=== PATIENT | female | born 2000 | race Caucasian/White ===

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

== ENCOUNTER → 2018-02-01 13:06 | Outpatient (CLI) | payer MEDICAID, SELFPAY ==
--- NOTE | 2018-02-01 13:10 | US_ITS ---
US transvaginal Ordering Physician: Fabio Coats MD Patient Age: 17 years: Female HISTORY: ITS.REASON: pelvic pain . Difficulty voiding bladder complaints since October 4 months. Previous TECHNIQUE: Transvaginal pelvic ultrasound COMPARISON :CT abdomen pelvis from 2015 FINDINGS Uterus. Retroverted retroflexed uterus.. Uterus appears normal to upper normal size, measuring 7.5 cm length x 4.2 cm AP X 5.6 cm transverse. No uterine fibroid or mass evident. Moderate endometrial stripe measures up to 1 CM AP. With some very scant fluid along the central endometrial cavity. Patient likely premenstrual. Any bleeding currently?.. Last LMP 01/10/2018 There is a small amount of fluid the cul-de-sac. Small pocket of fluid measured 1.7 X 1 cm. This could merely be physiologic very numerous small up to 6 mm follicles are seen throughout both ovaries with generous size ovaries, upper normal in volume bilaterally could.. Possible early polycystic change Right ovary: 3.65cm x 1.7 cm x 2.1 similar. Left ovary: measuring 4.2 cm x 1.4 cm x 1.4 cm. It bladder pain should persist or progress, may consider follow-up transabdominal scanning with bladder filled or possibly follow-up CT IMPRESSION: ====== 1. Retroflexed retroverted uterus no uterine mass. 2. Moderate endometrial thickness up to 1 cm with scant fluid centrally endometrial cavity. . May reflect premenstrual status in this young patient. Correlation required 3. The ovaries are generous in volume bilaterally. Diffuse numerous small follicles throughout. 4.. Scant fluid at cul-de-sac.
== END ==
PROVIDERS: Family Provider Obstetrics & Gynecology; PCP Family Medicine; Visit Provider Obstetrics & Gynecology
DX: R10.2 Pelvic and perineal pain (principal)
CPT/HCPCS: 76830

== ENCOUNTER 2020-11-14 11:31 | Emergency (ER) | payer OTHER, SELFPAY ==
[2020-11-14 11:55] VITALS: BP 127/66; PULSE 89; RESP 19; TEMP 37.1; O2SAT 98; BMI 37.1
[2020-11-14 12:09] VITALS: BP 127/66; PULSE 89; RESP 19; TEMP 37.1; O2SAT 98
--- NOTE | 2020-11-14 12:09 | HMH.EDUTC ---
[facility] Disposition Clinical Impression: Strep throat, Encounter for laboratory testing for COVID-19 virus Disposition: Home, Self-Care Condition on Discharge: Good Instructions: DI for COVID-19 (Suspected or Confirmed ), Coronavirus Disease 2019, Preventing the Spread of Coronavirus Discharge Instructions, DI for Strep Throat, Strep Throat, Strep Throat (Alternative Therapy) Additional Instructions: *Monitor Temp, Over the counter Motrin or Tylenol as directed/as needed Tylenol every 4 hours and Motrin every 6 hours (as long as your family doctor has told you that you can take it) for fever or pain. and straight to ER if unable to lower temp less than 101.0 after medication given *Warm salt water gargles may help to soothe the throat *Throat Lozenges *Warm fluids like tea with honey may help to soothe the throat *Sleep elevated *Humidifier/Vaporizer *If you did not take Penicillin shot or was unable to, start taking antibiotic immediately and make sure that you take it for the FULL length of time although you should start to feel better in 24-48 hours *change toothbrush and toothpaste 24-48 hours after starting to take antibiotics so you do not reinfect yourself Monitor Temp. Tylenol and/or Ibuprofen as needed. ER if fever is no less than 101 despite alternating Tylenol and Ibuprofen * Encourage fluids, water, Gatorade, powerade, pedialyte if infant/toddler/or child *Cold fluids, popsicles and ice cream may feel good on his throat Follow up IMMEDIATELY for new or worsening symptoms or no Noticeable improvement over the next 48-72 hours. 911 for difficulty breathing or swallowing You were tested for today for COVID19 your test result should be back in the next 24-48 hours, you may call to the [facility] to see if your test results are back in the next 48 hours [phone] [facility] hours are 9am-9pm You was given a handout with instructions for Self Quarantine and Self isolation for while you wait on test results and what to do if they are positive If you are positive the Health Dept will be contacting you also Prescriptions: Amoxicillin [Amoxicillin 500mg Cap] 500 mg PO BID 10 Days #20 cap Transmission Status: Pending to [facility] [employer] #[id number] Referrals: Yelena Coleman APRN [Primary Care Provider] - Forms: Work/School Release Time of Disposition: 12:13 Medical Decision Making - Bc Inquiry Pt receiving controlled substance: No Bc was queried for this patient: No Vital Signs: 11/14/20 11:55 Temperature 98.7 F Temperature Source Oral Pulse Rate [Right Brachial] 89 Respiratory Rate 19 Blood Pressure [Right Arm] 127/66 Blood Pressure Mean [Right Arm] 86 Blood Pressure Source [Right Arm] Automatic Cuff Blood Pressure Position [Right Arm] Sitting 02 Sat by Pulse Oximetry 98 Oxygen Delivery Method Room Air - Lab Data Lab results reviewed: Yes: I reviewed the patient's lab results. Orders (Tests/Meds): ORDERS Category Date Time Status Covid-19 Nasal PCR Sendout P&C Stat Lab 11/14/20 11:35 Ordered [facility] HPI - General Stated complaint: covid test Time Seen by Provider: 11/14/20 11:50 Mode of Arrival: Ambulatory Source of Information: Patient Limitations: No Limitations Description of Symptoms (Recalled from Triage Doc. by RN): PATIENT C/O SEVERE HEADACHE, SORE THROAT, AND COLD SWEATS SINCE WEDNESDAY HEENT Symptoms (Recalled from RN notes): Yes Resp Symptoms (Recalled from RN notes): No Skin Symptoms (Recalled from RN notes): No MS Symptoms (Recalled from RN notes): No Functional Status (Recalled from RN notes): WNL - History of Present Illness Provider Complaint: Patient states that she has been having sore throat, headache and feverish like feeling and cold sweats since Wed State that today she was feeling worse so she came in to get tested for COVID - Related Data Home Medications Medication Instructions Recorded Confirmed escitalopram oxalate 10 mg tablet 10 mg PO DAILY tab 07/15
[2020-11-14 13:56] LABS: UTC Strep Screen (Rapid) Positive (Negative)
[2020-11-15 07:26] LABS: Covid-19 Nasal PCR Sendout P&C NEGATIVE
== END 2020-11-14 12:18 | disposition home or self-care (01) ==
PROVIDERS: Emergency Provider Nurse Practitioner; PCP Nurse Practitioner
DX: J02.0 Streptococcal pharyngitis (principal)
CPT/HCPCS: 87880; 99202; G0463; U0004

== ENCOUNTER 2021-02-05 22:22 | Emergency (ER) | payer OTHER, SELFPAY ==
[2021-02-05 22:23] VITALS: BP 129/71; PULSE 68; RESP 16; TEMP 37.1; O2SAT 97; BMI 40.3
--- NOTE | 2021-02-05 22:41 | XR_ITS ---
PROCEDURE: XR FOOT RT MIN 3V CLINICAL INDICATION: accident Pain following injury COMPARISON: No exams were available for comparison FINDINGS: There is a lucency through the distal and lateral aspect of the proximal phalanx of the 5th toe consistent with a nondisplaced avulsion fracture. This however may be old. Please correlate with patient's area of pain and tenderness. Otherwise negative. IMPRESSION: Avulsion fracture at the distal aspect of the proximal phalanx of the 5th toe age indeterminate Dictated by: Celso Cleaning MD 02/06/2021 05:29 Celso Cleaning MD in [place] 02/06/2021 05:29
--- NOTE | 2021-02-05 23:25 | HMH.EDLOEX ---
ED Disposition Clinical Impression: Fracture of toe Qualifiers: Encounter type: initial encounter Toe: lesser toe Fracture type: closed Phalanx: middle Fracture alignment: nondisplaced Laterality: right Qualified Code(s): S92.524A - Nondisplaced fracture of middle phalanx of right lesser toe(s), initial encounter for closed fracture Disposition: Home, Self-Care Condition on Discharge: Good Instructions: DI for Toe Fracture Additional Instructions: ice and advil/tyenol and see podiatry and pcp for follow up Referrals: Yelena Coleman APRN [Primary Care Provider] - Meghann Gongora DPM [Staff Physician] - - Critical Care Critical Care Time: No Attestation: On 02/05/21, the high probability of a clinically significant, sudden or life threatening deterioration of the following system(s) required my full and direct attention, intervention and personal management. The time I documented below is in addition to time spent performing reported procedures but includes the following listed in this critical care notation. Medical Decision Making - Medical Records Medical records reviewed: Yes: I reviewed the patient's medical records. - Bc Inquiry Pt receiving controlled substance: No Vital Signs: 02/05/21 22:23 Temperature 98.7 F Temperature Source Oral Pulse Rate [Right] 68 Respiratory Rate 16 Blood Pressure [Right Arm] 129/71 Blood Pressure Mean [Right Arm] 90 02 Sat by Pulse Oximetry 97 - Lab Data Lab results reviewed: Yes: I reviewed the patient's lab results. Orders (Tests/Meds): ED MEDICATIONS Generic Name Dose Route Start Last Admin Trade Name Freq PRN Reason Stop Dose Admin Acetaminophen/Codeine Phosphate 1 jose l 02/05/21 23:41 Acetaminophen 300mg W/Codeine 30mg Take Home Pack (6) PO 02/05/21 23:42 ONCE ONE ORDERS Category Date Time Status Foot XR right minimum 3 views [XR foot RT min 3V] Stat Exams 02/05/21 22:41 Taken - Radiology Data #1 Image(s): Foot/Toes Image Reviewed: Yes I reviewed the patient's radiology image Preliminary Findings: Abnormal (fifth toe fx ) Lower Extremity Injury HPI - General Chief Complaint: Extremity Injury, Lower Stated Complaint: AO 0407 @2100 injured R Little toe Time Seen by Provider: 02/05/21 23:00 Mode of Arrival: Ambulatory Source of Information: Patient, Medical Record Limitations: No Limitations Description of Symptoms (Recalled from ER Triage Doc. by RN): pt states walking to bathroom and rt foot strike couch. pt c/o rt 5 toe pain - History of Present Illness HPI Narrative: acute injury rt fifth toe tonight complaint: foot injury Onset (ago): hour(s) Injury: Right: foot Type of Injury: blunt Place: home Severity: moderate Context: direct blow Associated symptoms: swelling, able to partially bear weight Other symptoms: none - Related Data Home Medications Medication Instructions Recorded Confirmed escitalopram oxalate 10 mg tablet 10 mg PO DAILY tab 07/15/20 11/14/20 Previous Rx's Medication Instructions Recorded medroxyprogesterone 150 mg/mL 150 mg IM [id number] #1 ml 01/22/21 intramuscular suspension Allergies Allergy/AdvReac Type Severity Reaction Status Date / Time No Known Allergies Allergy Verified 01/22/21 12:00 [facility] History - Hepatitis A Screen Drug use history?: No High risk sexual behaviors?: No History of sexually transmitted infection?: No Currently employed?: No Childcare worker?: No Do you have indoor plumbing?: Yes Do you have electricity?: Yes Attestation statement:: This patient has been screened for Hepatitis A risk factors. I have reviewed the patient's past medical history: Yes Medical History: Reports:: Seizures Denies:: Cancer, Diabetes Mellitus Type 1, Diabetes Mellitus Type 2, MRSA Other Medical History: Reports: Other Comment: BACK PAINS. DEPO-PROVERA Laterality Cases: Bilateral: Tonsillectomy Other Surgeries: Yes: , Other Amputation:
[2021-02-05 23:55] VITALS: BP 126/70; PULSE 72; RESP 16; TEMP 37.1; O2SAT 97
== END 2021-02-05 23:57 | disposition home or self-care (01) ==
PROVIDERS: Emergency Provider Emergency Medicine; PCP Nurse Practitioner
DX: S92.514A Nondisplaced fracture of proximal phalanx of right lesser toe(s), initial encounter for closed fracture (principal); W22.03XA Walked into furniture, initial encounter; Y92.019 Unspecified place in single-family (private) house as the place of occurrence of the external cause
CPT/HCPCS: 29515; 73630; 99283

== ENCOUNTER 2021-09-22 06:30 | Emergency (ER) | payer OTHER, SELFPAY ==
[2021-09-22 06:32] VITALS: BP 121/72; PULSE 76; RESP 18; TEMP 36.8; O2SAT 95; BMI 40.3
--- NOTE | 2021-09-22 06:44 | ECG_ITS ---
APPROVED REPORT Exam: Resting ECG HR:72 bpm ECG Measurements Heart Rate 72 AXES AR 158 P 50 QRSd 104 QRS 49 QT 404 T 26 QTc 442 Conclusion Normal sinus rhythm Normal ECG Electronically signed by : Luis Saeed MD 09/23/2021 12:18:20
--- NOTE | 2021-09-22 06:52 | XR_ITS ---
PROCEDURE: XR CHEST 2V CLINICAL HISTORY: SOA COMPARISON: CT CTAC CTA-CHEST from 11/03/2014 CR CXR1 CHEST-PORTABLE from 11/03/2014 CR CXR CHEST(2 VIEWS-NOT PORTABLE) from 06/29/2016 CR CXR2V XR chest 2V from 07/21/2018 FINDINGS: The cardiomediastinal silhouette and pulmonary vascularity are within normal limits. The lungs are clear without infiltrates, suspicious nodules, or pleural effusions. No acute bony abnormalities. IMPRESSION: No acute findings. Dictated by: Celso Cleaning MD 09/22/2021 09:22 Celso Cleaning MD in [place] 09/22/2021 09:22
[2021-09-22 06:59] LABS: Influenza A, PCR Not Detected (NotDetected); Influenza B, PCR Not Detected (NotDetected)
[2021-09-22 07:06] LABS: Basophils # 0.1 K/mm3 (0-0.2); Basophils % 0.8 % (0.1-2.0); Eosinophils # 0.5 K/mm3 (0.0-0.4); Eosinophils % 3.2 % (0.1-12.0); Hematocrit 40.2 % (37.0-47.0); Hemoglobin 13.4 g/dL (12.2-16.2); Lymphocytes # 4.9 K/mm3 (0.7-4.5); Lymphocytes % 29.6 % (10-50); Mean Corpuscular HGB Conc 33.3 g/dL (31.8-35.4); Mean Corpuscular Hemoglobin 29.4 pg (27.0-31.2); Mean Corpuscular Volume 88.3 fl (81-99); Monocytes # 0.8 K/mm3 (0.1-1.0); Monocytes % 4.6 % (1.7-9.3); Neutrophils # 10.2 K/mm3 (1.8-7.8); Neutrophils % 61.8 % (37.0-80.0); Platelet Count 336 K/mm3 (142-424); Red Blood Count 4.55 M/mm3 (4.20-5.40); White Blood Count 16.5 K/mm3 (4.8-10.8)
[2021-09-22 07:11] LABS: Alanine Aminotransferase 31 U/L (12-78); Albumin Level 4.4 g/dl (3.5-5.0); Alkaline Phosphatase 69 U/L (38-126); Aspartate Amino Transferase 33 U/L (14-36); Bilirubin,Direct 0.1 mg/dl (0.0-0.4); Bilirubin,Indirect 0.3 mg/dL (0.0-0.9); Bilirubin,Total 0.4 mg/dl (0.2-1.3); Bilirubin,Unconjugated 0.3 mg/dL (0.0-1.1); Blood Urea Nitrogen 12 mg/dl (7-17); Calcium 9.1 mg/dl (8.4-10.2); Carbon Dioxide 29 mmol/L (22.0-30.0); Chloride 103 mmol/L (98-107); Creatinine Clearance Estimated 226 mL/min (50-200); Estimated Glomerular Filt Rate 105 ml/min (>60); GFR (African American) 127 ML/MIN (>60); Glucose 110 mg/dl (74-100); Sodium 140 mmol/L (136-145); Total Protein,Serum 7.7 g/dl (6.3-8.2)
--- NOTE | 2021-09-22 07:11 | HMH.EDSOB ---
ED Disposition Clinical Impression: Bronchitis due to 2019 novel coronavirus, Mediastinal lymphadenopathy Disposition: Home, Self-Care Condition on Discharge: Good Instructions: DI for COVID-19 (Suspected or Confirmed ) Additional Instructions: use meds and call pcp for follow up about illness and ct Prescriptions: levoFLOXacin [Levaquin 500mg tab] 500 mg PO DAILY #7 tab Transmission Status: Pending to [facility] # predniSONE [Prednisone 20mg Tab] 20 mg PO BID #10 tab Transmission Status: Pending to [facility] # Referrals: Yelena Coleman APRN [Primary Care Provider] - - Critical Care Critical Care Time: No Attestation: On 09/22/21, the high probability of a clinically significant, sudden or life threatening deterioration of the following system(s) required my full and direct attention, intervention and personal management. The time I documented below is in addition to time spent performing reported procedures but includes the following listed in this critical care notation. Medical Decision Making - Medical Records Medical records reviewed: Yes: I reviewed the patient's medical records. - Bc Inquiry Pt receiving controlled substance: No Vital Signs: 09/22/21 06:32 09/22/21 08:01 Temperature 98.2 F Temperature Source Oral Pulse Rate 60 Pulse Rate [Right Radial] 76 Respiratory Rate 18 18 Blood Pressure 99/67 L Blood Pressure [Right Arm] 121/72 Blood Pressure Mean 77 Blood Pressure Mean [Right Arm] 88 Blood Pressure Source [Right Arm] Automatic Cuff Blood Pressure Position [Right Arm] Sitting 02 Sat by Pulse Oximetry 95 97 Oxygen Delivery Method Room Air - Lab Data Lab results reviewed: Yes: I reviewed the patient's lab results. Lab Results 09/22/21 06:34: WBC 16.5 H, RBC 4.55, Hgb 13.4, Hct 40.2, MCV 88.3, MCH 29.4, MCHC 33.3, RDW 13.0, Plt Count 336, MPV 9.0, Neut % (Auto) 61.8, Lymph % (Auto) 29.6, [place] % (Auto) 4.6, Eos % (Auto) 3.2, Baso % (Auto) 0.8, Neut # (Auto) 10.2 H, Lymph # (Auto) 4.9 H, [place] # (Auto) 0.8, Eos # (Auto) 0.5 H, Baso # (Auto) 0.1, Total Counted 100, Neutrophils % (Manual) 72, Lymphocytes % (Manual) 24, Monocytes % (Manual) 3, Eosinophils % (Manual) 1, Platelet Estimate Normal, RBC Morphology Normal 09/22/21 06:34: Sodium 140, Potassium 4.0, Chloride 103, Carbon Dioxide 29, Anion Gap 12.0, BUN 12, Creatinine 0.70, Estimated Creat Clear 226, Estimated GFR 105, Est GFR ( Amer) 127, Glucose 110 H, Calcium 9.1, Total Bilirubin 0.4, Direct Bilirubin 0.1, Conjugated Bilirubin 0.0, Indirect Bilirubin 0.3, Unconjugated Bilirubin 0.3, AST 33, ALT 31, Alkaline Phosphatase 69, Troponin I < 0.01, Total Protein 7.7, Albumin 4.4 09/22/21 06:34: SARS-CoV-2 (PCR) Detected A, Influenza A Untype (PCR) Not detected, Influenza Type B (PCR) Not detected 09/22/21 06:34: ESR 58 H 09/22/21 06:34: C-Reactive Protein 33.6 H, Procalcitonin 0.061 09/22/21 06:40: Serum HCG, Qual Negative Result diagrams: 09/22/21 06:34 09/22/21 06:34 Orders (Tests/Meds): ED MEDICATIONS Discontinued Medications Generic Name Dose Route Start Last Admin Trade Name Freq PRN Reason Stop Dose Admin Dexamethasone Sodium Phosphate 10 mg 09/22/21 07:12 09/22/21 07:20 Dexamethasone 4mg/Ml 5ml Mdv IV 09/22/21 07:13 Not Given ONCE ONE Sodium Chloride 1,000 mls @ 999 mls/hr 09/22/21 07:15 09/22/21 07:11 Sod Chlor 0.9% 1000ml Bag IV 09/22/21 08:15 999 mls/hr .Q1H1M YENNY Administration Iopamidol 70 ml 09/22/21 08:43 09/22/21 08:44 Iopamidol-370 (76%);100ml Bottle IV 09/22/21 08:44 70 ml ONCE ONE Administration Ketorolac Tromethamine 30 mg 09/22/21 07:12 09/22/21 07:15 Ketorolac 30mg/Ml Vial IV 09/22/21 07:13 30 mg ONCE ONE Administration Methylprednisolone Sodium Succinate 125 mg 09/22/21 07:16 09/22/21 07:20 Methylprednisolone Sod Succ 125mg Vial IV 09/22/21 07:17 125 mg ONCE ONE Administration Ondansetr
[2021-09-22 07:12] LABS: HCG Qualitative, Serum Negative (Negative)
[2021-09-22 07:15] LABS: MANUAL DIFFERENTIAL MANUAL DIFFERENTIAL (MANUAL DIFF)
[2021-09-22 07:16] LABS: C-Reactive Protein 33.6 mg/L (0-4)
[2021-09-22 07:26] LABS: Troponin I < 0.01 ng/ml (0.00-0.034)
[2021-09-22 07:28] LABS: Coronavirus 19, PCR Detected (NotDetected)
[2021-09-22 07:30] LABS: Procalcitonin 0.061 ng/mL (0.0-2.0)
[2021-09-22 07:39] LABS: Eosinophils % 1 % (0-3); Lymphocytes % 24 % (10-50); Monocytes % 3 % (2-9); Neutrophils % 72 % (42-76); Platelet Estimate Normal; RBC Morphology Normal; Total Cells Counted 100
--- NOTE | 2021-09-22 07:40 | CT_ITS ---
PROCEDURE: CT ANGIO CHEST PE PROTOCOL CLINCIAL INDICATION: sob COMPARISON: CT CTAC CTA-CHEST from 11/03/2014 TECHNIQUE: IV Contrast: 70ML Isovue 370 Axial images obtained with sagittal and coronal reformats. All CT scans at the facility use one or more dose reduction, viz: automated exposure control, ma/kV adjustment per patient size (including targeted exams where dose is matched to indication, i.e. head), or iterative reconstruction technique. FINDINGS: HEART AND MEDIASTINAL STRUCTURES: Enlarged thyroid gland. There is fairly extensive mediastinal adenopathy which has developed since the previous study in the right anterior lateral pre tear achy ule region and in the subcarinal area. The anterior pretracheal and precarinal antoine area measures 4 x 3.7 x 2.9 cm. Coarse calcification is present within these antoine areas. No evidence of pulmonary embolus, aortic aneurysm, or aortic dissection. LUNGS AND PLEURAL SPACES: Calcified granulomas present in the left lower lobe. There is mild diffuse hazy appearance involving both lower lobes posteriorly possibly due to dependent changes. No lobar consolidation or collapse. No effusions. BONY STRUCTURES: No acute bony abnormalities apparent. UPPER ABDOMEN: There is hepatosplenomegaly. The liver measures up to 27 cm transverse and the spleen measures 17.5 cm in AP dimension. ADDITIONAL FINDINGS: No other significant abnormalities. IMPRESSION: 1. No evidence of pulmonary embolus. 2. Interval development of mediastinal adenopathy. The nodes have coarse calcification centrally. The calcifications were present previously. Differential diagnosis would include reactive adenopathy, sarcoidosis, or lymphoma. 3. Faint diffuse ground-glass attenuation in both lower lobes posteriorly. This could be related to dependent changes. Cannot exclude the possibility of underlying infection or edema. 4. Hepatosplenomegaly Dictated by: Celso Cleaning MD 09/22/2021 09:17 Celso Cleaning MD in [place] 09/22/2021 09:17
--- NOTE | 2021-09-22 08:00 | PC.NURSE ---
RAD NOTIFIED OF CTA ORDER
[2021-09-22 08:01] VITALS: BP 99/67; PULSE 60; RESP 18; O2SAT 97
[2021-09-22 08:05] LABS: Erythrocyte Sedimentation Rate 58 mm/hr (0-20)
--- NOTE | 2021-09-22 09:36 | PC.NURSE ---
DR. BLEVINS NOTIFIED OF CTA REPORT AVAILABLE
--- NOTE | 2021-09-22 09:51 | PC.NURSE ---
DR. BLEVINS CALLED TO CHECK ON PT, ORDERS RECEIVED AT THIS TIME. WILL DISCHARGE PT
--- NOTE | 2021-09-22 09:54 | PC.NURSE ---
RESPIRATORY AT BEDSIDE FOR INHALER INSTRUCTION
[2021-09-22 10:27] LABS: Troponin I < 0.01 ng/ml (0.00-0.034)
[2021-09-22 10:37] VITALS: BP 106/56; PULSE 82; RESP 17; O2SAT 95
[2021-09-22 10:50] VITALS: BP 106/56; PULSE 76; RESP 18; TEMP 36.8; O2SAT 95
== END 2021-09-22 10:50 | disposition home or self-care (01) ==
PROVIDERS: Emergency Provider Emergency Medicine; PCP Nurse Practitioner
DX: U07.1 COVID-19 (principal); J20.9 Acute bronchitis, unspecified; R59.0 Localized enlarged lymph nodes
CPT/HCPCS: 71046; 71275; 80048; 80076; 84145; 84484; 84703; 85007; 85025; 85651; 86140; 93005; 96365; 96375; 99283; C9803; J2405; Q9967; U0003; U0005

== ENCOUNTER → 2021-11-05 12:31 | Outpatient (CLI) | payer OTHER, SELFPAY | PROVIDERS: Visit Provider Nurse Practitioner | DX: U07.1 COVID-19 (principal) | CPT/HCPCS: C9803; U0003; U0005 ==

== ENCOUNTER → 2022-05-26 05:32 | Outpatient (CLI) | payer OTHER, SELFPAY ==
[2022-05-26 06:25] LABS: Coronavirus 19, PCR Not Detected (NotDetected); Influenza A, PCR Not Detected (NotDetected); Influenza B, PCR Not Detected (NotDetected)
== END ==
PROVIDERS: PCP Nurse Practitioner Family; Visit Provider Emergency Medicine
DX: Z20.822 Contact with and (suspected) exposure to COVID-19 (principal)
CPT/HCPCS: C9803; U0003; U0005

== ENCOUNTER 2022-09-01 09:39 | Emergency (ER) | payer OTHER, SELFPAY ==
--- NOTE | 2022-09-01 09:35 | ECG_ITS ---
APPROVED REPORT Exam: Resting ECG HR:110 bpm ECG Measurements Heart Rate 110 AXES [place] 163 P 47 QRSd 100 QRS 42 QT 334 T 15 QTc 399 Conclusion SINUS TACHYCARDIA ABNORMAL RHYTHM ECG UNCONFIRMED REPORT Electronically signed by : Luis Saeed MD 09/01/2022 21:09:43
[2022-09-01 09:39] VITALS: BP 127/87; PULSE 105; RESP 20; TEMP 36.8; O2SAT 97; BMI 41.9
--- NOTE | 2022-09-01 10:16 | PC.NURSE ---
PT MEDICATED PER EMAR, AT BEDSIDE. NO NEEDS VOICED
--- NOTE | 2022-09-01 10:22 | PC.NURSE ---
pt given warm blankets
--- NOTE | 2022-09-01 10:27 | PC.NURSE ---
ROUNDED ON PT, REPORTS FEELING BETTER
[2022-09-01 10:30] VITALS: BP 117/66; RESP 21
[2022-09-01 11:01] VITALS: BP 106/71; RESP 22
--- NOTE | 2022-09-01 11:05 | PC.NURSE ---
rounfded on pt and asked if they could have some ice chips. was able to get the pt some.
[2022-09-01 11:30] VITALS: BP 115/73; RESP 21
[2022-09-01 12:20] LABS: Basophils # 0.2 K/mm3 (0-0.2); Basophils % 0.8 % (0.1-2.0); Eosinophils # 0.4 K/mm3 (0.0-0.4); Hematocrit 43.6 % (37.0-47.0); Hemoglobin 14.6 g/dL (12.2-16.2); Lymphocytes # 6.2 K/mm3 (0.7-4.5); Lymphocytes % 30.7 % (10-50); Mean Corpuscular HGB Conc 33.5 g/dL (31.8-35.4); Mean Corpuscular Hemoglobin 30.6 pg (27.0-31.2); Mean Corpuscular Volume 91.3 fl (81-99); Mean Platelet Volume 9.7 fl (7.4-10.4); Monocytes # 1.1 K/mm3 (0.1-1.0); Monocytes % 5.3 % (1.7-9.3); Neutrophils # 12.4 K/mm3 (1.8-7.8); Neutrophils % 61.2 % (37.0-80.0); Platelet Count 403 K/mm3 (142-424); Red Blood Count 4.77 M/mm3 (4.20-5.40); Red Cell Distribution Width 12.8 % (11.5-17.5); White Blood Count 20.3 K/mm3 (4.8-10.8)
--- NOTE | 2022-09-01 12:20 | PC.NURSE ---
ROUNDED ON PT, RESTING WITH EYES CLOSED. NO NEEDS AT THIS TIME
--- NOTE | 2022-09-01 12:34 | PC.NURSE ---
DR. MULLEN AT BEDSIDE FOR EVALUATION
--- NOTE | 2022-09-01 12:39 | HMH.EDGENADL ---
Discharge Plan Disposition Patient Disposition: Home, Self-Care Condition: Good Prescriptions Prescriptions: New prednisone 20 mg tablet 20 mg PO BID Qty: 10 0RF famotidine [Pepcid] 20 mg tablet 20 mg PO BID Qty: 6 0RF diphenhydramine HCl [Benadryl] 25 mg capsule 25 mg PO Q6H Qty: 12 0RF No Action escitalopram oxalate 10 mg tablet 10 mg PO DAILY Label Comments: TK 1 T PO QD Referrals Follow up/Referrals: Provider,Referral, [Primary Care Provider] - See instructions Activity Restrictions/Add. Instructions Additional Instructions/Restrictions: Benadryl, prednisone, and Pepcid as prescribed for 3 days. Do not take any penicillin medications in the future. Additional instructions for ALLERGIC REACTION: See your physician for further care. Return immediately if severe intolerable rash or itching, trouble breathing, or faintness. Clinical Impressions Clinical Impression: Acute allergic reaction, Allergic reaction to penicillin, Leukocytosis Stand Alone Forms Stand Alone Forms: Work/School Release Discharge ED Provider: Josias Henderson General Adult HPI General Chief complaint: Allergic Reaction Stated complaint: CHEST PAIN Time Seen by Provider: 09/01/22 12:33 Mode of Arrival: Ambulatory Limitations: No Limitations Description of Symptoms (Recalled from ER Triage Doc. by RN): PT REPORTS COUGH, VOMITING AND ITCHGING THAT STARTED ABOUT 0900 AFTER TAKING AMOXIL AT 0800. HAS NEVER TAKEN AMOXIL BEFORE, RX GIVEN FOR URI History of Present Illness HPI narrative: Patient states that she took amoxicillin this morning for an upper respiratory infection at about 8 AM. At about 9 she began having itching and hives, trouble breathing, lower sternal chest pain, coughing and vomiting. To her knowledge she has never had penicillin before. Initially she did not complain of any lip, mouth, or throat swelling. She was given Benadryl, Solu-Medrol, and Pepcid on arrival. Her rash and itching and other symptoms all seem to be better, but now she says that she has a sensation like there is something in her throat, a swelling or constriction when she swallows. She says she was prescribed amoxicillin 8 days ago for the upper respiratory infection but had not taken it until today. She saw Dr. Mejia in the office. She says she was not given any other medications for her URI. She took it today because she was having some head congestion and thought it would help. She said her cough had improved until today. She began coughing again after she developed the hives. The cough is now again better. She had had a fever, which has been gone for days. She was tested for COVID last Wednesday and it was negative. Related Data Home Medications Medication Instructions Recorded Confirmed escitalopram oxalate 10 mg tablet 10 mg PO DAILY Depression 07/15/20 09/01/22 Previous Rx's Medication Instructions Recorded diphenhydramine HCl 25 mg capsule 25 mg PO Q6H #12 caps 09/01/22 (Benadryl) famotidine 20 mg tablet (Pepcid) 20 mg PO BID #6 tabs 09/01/22 prednisone 20 mg tablet 20 mg PO BID #10 tabs 09/01/22 Allergies Allergy/AdvReac Type Severity Reaction Status Date / Time amoxicillin Allergy Hives Verified 09/01/22 15:18 PFSH PFSH Surgical History (Updated 09/01/22 @ 09:48 by Melissa Carranza RN) History of tonsillectomy Hx of cholecystectomy Previous section Family History (Updated 09/01/22 @ 09:48 by Melissa Carranza RN) Other No significant family history Social History (Updated 09/01/22 @ 09:47 by Melissa Carranza RN) Smoking Status: Current every day smoker tobacco type: cigarettes alcohol intake: never substance use type: denies use current occupational status: unemployed Travel in the last 8 weeks: None household members: family ROS Obtained: Yes Systems reviewed as appropriate & no additional complaints except as documented Constitutional Cons
[2022-09-01 12:40] LABS: MANUAL DIFFERENTIAL MANUAL DIFFERENTIAL (MANUAL DIFF)
[2022-09-01 12:48] LABS: Eosinophils % 1 % (0-3); Lymphocytes % 31 % (10-50); Monocytes % 9 % (2-9); Neutrophils % 59 % (42-76); Total Cells Counted 100
--- NOTE | 2022-09-01 12:48 | XR_ITS ---
FINAL REPORT CLINICAL HISTORY: Unexplained cough COMPARISON: 09/22/2021 FINDINGS: Two views of the chest were obtained. The heart size and pulmonary vascularity are within normal limits. The mediastinum is normal. No acute pulmonary abnormality is identified. There is no pneumothorax. The bony thorax is intact. IMPRESSION: No active cardiopulmonary disease. Reviewed, Interpreted and Dictated by Kristopher Castillo III, MD Transcribed by Natalia Lim Authenticated and [facility]
[2022-09-01 12:49] LABS: Platelet Estimate Slight Increase; RBC Morphology Normal
[2022-09-01 12:49] LABS: Alanine Aminotransferase 38 U/L (12-78); Albumin/Globulin Ratio 1.3 (1.1-1.8); Alkaline Phosphatase 76 U/L (38-126); Anion Gap 13.4 mEq/L (5-15); Aspartate Amino Transferase 36 U/L (14-36); Bilirubin,Total 0.5 mg/dl (0.2-1.3); Blood Urea Nitrogen 10 mg/dl (7-17); Calcium 8.7 mg/dl (8.4-10.2); Carbon Dioxide 25 mmol/L (22.0-30.0); Chloride 105 mmol/L (98-107); Creatinine Clearance Estimated 137 mL/min (50-200); Estimated Glomerular Filt Rate 124 ml/min (>60); GFR (African American) 150 ML/MIN (>60); Globulin 3.2 g/dL (1.3-3.2); Glucose 144 mg/dl (74-100); Potassium 4.4 mmoL/L (3.5-5.1); Sodium 139 mmol/L (136-145); Total Protein,Serum 7.2 g/dl (6.3-8.2)
[2022-09-01 13:10] LABS: HCG Qualitative, Serum Negative (Negative)
--- NOTE | 2022-09-01 13:16 | PC.NURSE ---
pt went with radiology
--- NOTE | 2022-09-01 13:22 | PC.NURSE ---
PT RETURNED FROM XR
--- NOTE | 2022-09-01 15:00 | PC.NURSE ---
ED MD AT BEDSIDE TO REEVALUATE PT
[2022-09-01 15:16] VITALS: BP 124/79; PULSE 85; RESP 18; TEMP 37; O2SAT 98
== END 2022-09-01 15:19 | disposition home or self-care (01) ==
PROVIDERS: Emergency Provider Emergency Medicine
DX: R05.9 Cough, unspecified; R11.10 Vomiting, unspecified; L29.8 Other pruritus; T36.0X5A Adverse effect of penicillins, initial encounter; D72.829 Elevated white blood cell count, unspecified; Z79.899 Other long term (current) drug therapy; F32.A Depression, unspecified; Z72.0 Tobacco use
CPT/HCPCS: 71046; 80053; 84703; 85007; 85025; 93005; 96365; 96372; 96375; 99284

== ENCOUNTER 2024-01-18 07:25 | Outpatient (CLI) | payer BC, SELFPAY ==
[2024-01-20 22:08] LABS: Neisseria gonorrhoeae, NAA Negative (Negative)
== END 2024-01-18 23:59 ==
LOC: LAB.DROPOF 01-20 07:26
PROVIDERS: PCP Obstetrics & Gynecology; Visit Provider Obstetrics & Gynecology
DX: O26.892 Other specified pregnancy related conditions, second trimester (principal); Z3A.19 19 weeks gestation of pregnancy
CPT/HCPCS: 87491; 87591

== ENCOUNTER 2024-01-19 09:09 | Outpatient (CLI) | payer BC, SELFPAY ==
--- NOTE | 2024-01-19 09:10 | US_ITS ---
PROCEDURE: US OB >= 14 WEEKS FETUS CLINICAL INDICATION: Confirmation of Dates and OB Complete Anatomy Scan COMPARISON: No exams were available for comparison FINDINGS: Transabdominal sonographic images of the pelvis were obtained. From her established due date she is 18 weeks 6 days. Single viable intrauterine gestation. Cephalic position. Placenta: Anteriorplacenta grade 1. There are several placental lakes. There is an average amount of fluid. The cervix appears satisfactory. Closed and measuring 3.3 cm in length. Complete survey performed and was unremarkable on the submitted images as in PACS. No discrete anomalies identified on survey imaging by technologist. Active fetus. Three-vessel cord with satisfactory umbilical cord insertion. 4- chamber heart noted. Situs, aortic arch, LVOT, RVOT, three-vessel view appear normal. Survey of brain & ventricles Unremarkable. Cerebellum, thalamus, choroid plexus, cisterna magna appear normal. Face and neck survey unremarkable. Profile, nasion, lips and nose appeared normal. Diaphragm and chest views unremarkable. Abdomen: Both kidneys noted and unremarkable. Stomach and bladder noted and satisfactory. Spine: Survey of the spine satisfactory with no anomalies identified nor imaged. Cervical, thoracic, lower spine appear normal. Both arms and legs noted. Amniotic Fluid: Adequate. Measurements: Average ultrasound age 19weeks 0 days. Estimated due date by ultrasound age 0806/14/2024. Estimated weight 271g BPD = 18weeks 5days HC = 18weeks 5days AC = 19weeks 1day FL = 19weeks 2days Growth Percentile= 57 Heart Rate = 136bpm Cerebellum = 17weeks 6days Humerus = 19weeks HC/AC is 1.16 FL/BPD is 0.71 FL/AC is 0.22 IMPRESSION: 1. Viable fetus in the cephalic presentation with anterior placenta grade 1. There are several placental lakes of questionable significance. 2. That is within normal limits. 3. Anatomical scan appears normal although difficult due to maternal size. Suggest repeat scan in 4 weeks. 4. biometry is consistent with the dates. Dictated by: Curtis Camilo MD 01/19/2024 13:30 Curtis Camilo MD in [place] 01/19/2024 13:30
== END 2024-01-19 23:59 ==
LOC: RAD 09:10
PROVIDERS: PCP Nurse Practitioner Family; Visit Provider Obstetrics & Gynecology
DX: O26.892 Other specified pregnancy related conditions, second trimester (principal); Z3A.18 18 weeks gestation of pregnancy
CPT/HCPCS: 76805

== ENCOUNTER 2024-02-16 11:10 | Outpatient (CLI) | payer BC, SELFPAY ==
[2024-02-16 11:58] LABS: Basophils # 0.1 K/mm3 (0-0.2); Basophils % 0.4 % (0.1-2.0); Eosinophils # 0.3 K/mm3 (0.0-0.4); Eosinophils % 2.5 % (0.1-12.0); Hematocrit 32.8 % (37.0-47.0); Hemoglobin 11.1 g/dL (12.2-16.2); Lymphocytes # 3.3 K/mm3 (0.7-4.5); Lymphocytes % 24.7 % (10-50); Mean Corpuscular HGB Conc 33.8 g/dL (31.8-35.4); Mean Corpuscular Hemoglobin 31.1 pg (27.0-31.2); Mean Corpuscular Volume 92.2 fl (81-99); Mean Platelet Volume 9.4 fl (7.4-10.4); Monocytes # 0.6 K/mm3 (0.1-1.0); Monocytes % 4.4 % (1.7-9.3); Neutrophils % 68.1 % (37.0-80.0); Platelet Count 229 K/mm3 (142-424); Red Blood Count 3.56 M/mm3 (4.20-5.40); Red Cell Distribution Width 13.1 % (11.5-17.5); White Blood Count 13.3 K/mm3 (4.8-10.8)
[2024-02-17 10:11] LABS: Rubella Antibodies, IgG 1.01 index (Immune >0.99)
[2024-02-17 13:29] LABS: Rapid Plasma Reagin Ab Titer Non Reactive titer (NonRea<1:1)
[2024-02-18 08:45] LABS: HIV Screen 4th Generation wRfx Non Reactive
[2024-02-18 08:46] LABS: Hepatitis B Surface Antigen Negative; Hepatitis C Antibody Non Reactive
== END 2024-02-16 23:59 | disposition home or self-care (01) ==
LOC: LAB 11:10
PROVIDERS: PCP Nurse Practitioner Family; Visit Provider Obstetrics & Gynecology
DX: O26.892 Other specified pregnancy related conditions, second trimester (principal); Z3A.22 22 weeks gestation of pregnancy
CPT/HCPCS: 36415; 85025; 86593; 86703; 86762; 86850; 87340; 87380; G0432

== ENCOUNTER 2024-02-18 13:30 | Outpatient (CLI) | payer BC, SELFPAY ==
--- NOTE | 2024-02-18 13:30 | US_ITS ---
PROCEDURE: US OB /MATERNAL DETAIL CLINICAL INDICATION: anatomy scan follow up COMPARISON: US US OB >= 14 WEEKS FETUS from 01/19/2024 FINDINGS: Transabdominal sonographic images of the pelvis were obtained. From her established due date she is 23 weeks 1 day. Single viable intrauterine gestation. Cephalic position. Placenta: Anteriorplacenta grade 1. There continues to be several placental lakes. There is an average amount of fluid. The cervix appears satisfactory. Closed and measuring 4.3 cm in length. Complete survey performed and was unremarkable on the submitted images as in PACS. No discrete anomalies identified on survey imaging by technologist. Active fetus. Three-vessel cord with satisfactory umbilical cord insertion. 4- chamber heart noted. Situs, aortic arch, LVOT, RVOT, three-vessel view appear normal. Survey of brain & ventricles Unremarkable. Cerebellum, thalamus, choroid plexus, cisterna magna appear normal. Face and neck survey unremarkable. Profile, nasion, lips and nose appeared normal. Diaphragm and chest views unremarkable. Abdomen: Both kidneys noted and unremarkable. Stomach and bladder noted and satisfactory. Spine: Survey of the spine satisfactory with no anomalies identified nor imaged. Cervical, thoracic, lower spine appear normal. Both arms and legs noted. Amniotic Fluid: Adequate. Measurements: Average ultrasound age 23weeks 1day. Estimated due date by ultrasound age 0806/15/2024. Estimated weight 558g BPD = 23weeks 0 days HC = 23weeks 1day AC = 22weeks 3days FL = 23weeks 6days Growth Percentile= 38 Heart Rate = 135bpm Cerebellum = 22weeks 5days Humerus = 23weeks 6days HC/AC is 1.2 FL/BPD is 0.76 FL/AC is 0.24 IMPRESSION: 1. Viable fetus in the cephalic presentation with an anterior placenta grade 1. There continues to be several placental lakes. 2. The fluid is within normal limits. 3. Anatomical scan appears normal. 4. biometry is consistent with the dates. Dictated by: Curtis Camilo MD 02/19/2024 08:28 Curtis Camilo MD in [place] 02/19/2024 08:28
== END 2024-02-18 23:59 | disposition home or self-care (01) ==
LOC: RAD 13:30
PROVIDERS: PCP Nurse Practitioner Family; Visit Provider Obstetrics & Gynecology
DX: O26.892 Other specified pregnancy related conditions, second trimester (principal); Z3A.23 23 weeks gestation of pregnancy
CPT/HCPCS: 76811

== ENCOUNTER 2024-06-03 15:54 | Inpatient (IN) | payer BC, SELFPAY ==
[2024-06-03 15:30] VITALS: BP 139/76; PULSE 85; RESP 18; TEMP 36.9; O2SAT 95; BMI 41.1
[2024-06-03 15:36] VITALS: BMI 41.1
[2024-06-03 15:50] LABS: Fetal Membrane Rupture (Rapid) Positive (Negative)
--- NOTE | 2024-06-03 16:08 | EXP.OB.APHP ---
OB - H&P: HPI Antepartum History of Present Illness Chief complaint: Leakage of fluid, back pain History of present illness: Mrs Magali Diehl is a 23 yo at 37w5d who presents to [facility] L&D for leakage of fluid that started at 1430 today. She admits after leakage she started having back pain. Denies contractions. Baby is active. Upon arrival to L&D Magali was grossly ruptured. Amnisure was positive. complicated by anxiety. She stopped Lexapro when she found out she was . She has had limited care with a total of 4 visits. History of x 2. She is complete with childbearing and desires permanent sterilization. History of Present Criteria for establishing EDC:: LMP confirmed by 2nd trimester US care: limited care Ultrasounds: normal mid trimester US Obstetrical complications: previous Labs Blood type: A (+) positive Rubella: immune RPR/VDRL: nonreactive HBsAG: negative PFSH PFSH Disclaimer: The information contained in this section may have been updated after the patient was seen, as this information can be updated by other users. Medical History (Updated 06/03/24 @ 16:26 by Emi Euceda DO) Request for sterilization Limited care, antepartum Maternal obesity affecting , antepartum Spontaneous rupture of amniotic membranes PTSD (post-traumatic stress disorder) Surgical History (Updated 06/03/24 @ 16:25 by Emi Euceda DO) Hx of cholecystectomy Previous section History of tonsillectomy Family History Other Anemia Asthma Cancer Coronary artery disease Heart attack Hyperlipidemia Hypertension Social History Smoking Status: Never smoker alcohol intake: never substance use type: denies use current occupational status: employed Travel in the last 8 weeks: None household members: family Review of Systems Review of Systems Review of systems:: pertinent systems reviewed and negative unless documented below *Genitourinary Comments: + leakage of fluid *Musculoskeletal Comments: + back pain Meds Home Medications and Allergies Home Medications ?Medication ?Instructions ?Recorded ?Confirmed ?Type vits no.126-ferrous fum tab PO DAILY 02/16/24 04/12/24 History 28 mg iron-folic acid 800 mcg tablet (Classic ) New Prescriptions to Start Prescriptions: Allergies Allergy/AdvReac Type Severity Reaction Status Date / Time amoxicillin Allergy Hives Verified 04/12/24 09:56 OB - H&P: Exam Constitutional no acute distress and cooperative Routine HEENT Exam Head: Present normocephalic and atraumatic Eye: Absent conjunctivae pink ENT: Present mucous membranes moist Routine Neck Exam Present full ROM Routine Respiratory Exam Present CTA bilaterally and normal respiratory effort Routine Cardiovascular Exam Present RRR Routine Abdominal Exam Present soft (Gravid); Absent tenderness Routine Rectal Exam Patient deferred: visual exam Routine Exam Patient deferred: external exam Routine Extremities Exam Present full ROM; Absent edema or calf tenderness Routine Neurological Exam Present alert, moving all extremities and normal speech Routine Psychiatric Exam Present normal affect and cooperative Detailed Labor and Delivery Exam Membranes: spontaneously ruptured Amniotic fluid: clear Baseline heart rate: 130 monitor accelerations: Present monitor 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 Discussed risks, benefits, alternatives, expectations and possible complications of surgery. Risks include but are not limited to bleeding; infection; damage to adjacent structures (bowel, bladder, nerves, blood vessels, etc) (possibly requiring further intervention and/or longer hospital stay); VTE; risks with anesthesia; and risk of . All questions addressed and answered. Patient voiced understanding of risks and possible complications. Patient desires to proceed with surgery. Consent form signed. Proceed with RLTCS and bilateral salpingectomy
[2024-06-03 16:30] LABS: Basophils # 0.1 K/mm3 (0-0.2); Basophils % 0.3 % (0.1-2.0); Eosinophils # 0.3 K/mm3 (0.0-0.4); Hematocrit 36.6 % (37.0-47.0); Hemoglobin 12.1 g/dL (12.2-16.2); Lymphocytes # 2.6 K/mm3 (0.7-4.5); Lymphocytes % 19.2 % (10-50); Mean Corpuscular HGB Conc 33.1 g/dL (31.8-35.4); Mean Corpuscular Hemoglobin 30.7 pg (27.0-31.2); Mean Corpuscular Volume 92.7 fl (81-99); Mean Platelet Volume 9.8 fl (7.4-10.4); Monocytes # 0.6 K/mm3 (0.1-1.0); Neutrophils # 10.3 K/mm3 (1.8-7.8); Neutrophils % 74.5 % (37.0-80.0); Platelet Count 219 K/mm3 (142-424); Red Blood Count 3.94 M/mm3 (4.20-5.40); Red Cell Distribution Width 13.7 % (11.5-17.5); White Blood Count 13.8 K/mm3 (4.8-10.8)
--- NOTE | 2024-06-03 16:39 | EXP.ANES.CKL ---
[facility] Disclaimer: The information contained in this section may have been updated after the patient was seen, as this information can be updated by other users. Medical History (Updated 06/03/24 @ 16:26 by Emi Euceda DO) Request for sterilization Limited care, antepartum Maternal obesity affecting , antepartum Spontaneous rupture of amniotic membranes PTSD (post-traumatic stress disorder) Surgical History (Updated 06/03/24 @ 16:25 by Emi Euceda DO) Hx of cholecystectomy Previous section History of tonsillectomy Family History Other Anemia Asthma Cancer Coronary artery disease Heart attack Hyperlipidemia Hypertension Social History Smoking Status: Never smoker alcohol intake: never substance use type: denies use current occupational status: employed Travel in the last 8 weeks: None household members: family [facility] Anesthesia Checklist Patient Identification Patient Identification: Arm Band Structural Data Admitted From: Inpatient Planned Operative Procedure/s: Repeat C/S with Bilateral Salpingectomy Consent for Planned Operative Procedure(s) Verified: Yes Verified Documents: Surgical Consent and History and Physical NPO Status Verified Time NPO: 00:00 Additional verifications Anesthesia Reactions: No Airway Assessment Mallampati Score:: Class II C-Spine Mobility Assessed: Yes TMJ Mobility Assessed: Yes Dentition: Good Dentition Neurological Assessment Level of Consciousness: Awake, Alert and Appropriate Anesthesia Plan Anesthesia Risk discussed: Yes Anesthesia Plan: Verified ASA Class: II Anesthesia Type: Spinal (with Bilateral TAP Block)
[2024-06-03] MEDS: CLINDAMYCIN PHOSPHATE/D5W 900 MG/50 ML PIGGYBACK 50 MG IV (16:45)
[2024-06-03] MEDS: GENTAMICIN SULFATE 500 MG in 0.9 % SODIUM CHLORIDE 100 ML 100 MG IV (16:45)
[2024-06-03] MEDS: AZITHROMYCIN 500 MG in 0.9 % SODIUM CHLORIDE 250 ML 250 MG IV (16:45)
[2024-06-03 16:51] LABS: Albumin Level 3.4 g/dl (3.5-5.0); Chloride 109 mmol/L (98-107); Sodium 135 mmol/L (136-145)
[2024-06-03 16:54] LABS: Alanine Aminotransferase 25 U/L (12-78); Albumin/Globulin Ratio 1.1 (1.1-1.8); Alkaline Phosphatase 197 U/L (38-126); Aspartate Amino Transferase 29 U/L (14-36); Bilirubin,Total 0.5 mg/dl (0.2-1.3); Blood Urea Nitrogen 6 mg/dl (7-17); Calcium 8.9 mg/dl (8.4-10.2); Carbon Dioxide 20 mmol/L (22.0-30.0); Creatinine Clearance Estimated 393 mL/min (50-200); Estimated Glomerular Filt Rate 194 ml/min (>60); GFR (African American) 235 ML/MIN (>60); Globulin 3.1 g/dL (1.3-3.2); Glucose 86 mg/dl (74-100); Total Protein,Serum 6.5 g/dl (6.3-8.2)
--- NOTE | 2024-06-03 18:03 | P.OP_ITS ---
Date of procedure: 06/03/24 Pre-op Diagnosis:: 1. IUP at 37w5d 2. Spontaneous rupture of membranes 3. History of x 2 4. Maternal obesity 5. Limited care 6. Desires permanent sterilization Post-op Diagnosis:: 1. IUP at 37w5d 2. Spontaneous rupture of membranes 3. History of x 2 4. Maternal obesity 5. Limited care 6. Desires permanent sterilization Procedure performed:: Repeat Low Transverse Section, bilateral salpingectomy Surgeon:: Emi Euceda DO Clay Machine Operator(s):: Candelario Willis MD ICE DELIVERY DRIVER:: Eric Brink Anesthesia: spinal Estimated blood loss (mL): 350 Clinical Note:: Mrs Magali Diehl is a 23 yo at 37w5d who presents to [facility] L&D for leakage of fluid that started at 1430 today. She admits after leakage she started having back pain. Denies contractions. Baby is active. Upon arrival to L&D Magali was grossly ruptured. Amnisure was positive. complicated by anxiety. She stopped Lexapro when she found out she was . She has had limited care with a total of 4 visits. History of x 2. She is complete with childbearing and desires permanent sterilization. Operative findings:: 1. Live female baby, Carmella, weighing 8 lb 1 oz. Apgars 8 (1 min), 9 (5 min) 2. Grossly normal appearing uterus, bilateral fallopian tubes and ovaries 3. Placenta with multiple calcifications Operative note:: The risks, benefits and alternatives of the procedure were reviewed with the patient. Informed consent was obtained. Patient was taken to the operating room where spinal anesthesia was placed. The patient received Clindamycin 900 mg, Gentamicin 5mg/kg and Azithromycin 500 mg. Patient was placed in dorsal supine position with a leftward tilt. SCDs in place. Anne catheter was inserted and draining clear urine prior to the start of the procedure. heart tones were obtained. Vagina was prepped with Betadine swabs x 3. Patient was then prepped and draped in normal sterile fashion. Allis clamp test was performed to ensure adequate anesthesia. A Pfannenstiel skin incision was made 2 cm above pubic symphysis, slightly above prior Pfannenstiel scar. This was carried through to underlying layer of fascia. Fascia was incised in midline, extended laterally with Torres scissors. Superior aspect of fascial incision was grasped with two Franchesca clamps, elevated up, and rectus muscle dissected off bluntly and sharply with Torres scissors. Inferior aspect of fascial incision was grasped with two Franchesca clamps, elevated up, and rectus muscle dissected off bluntly and sharply with Torres scissors. The retcus muscle was then in the midline and the peritoneum was entered bluntly with a digit. Peritoneal incision was then exten ded superiorly and inferiorly with good visualization of the bladder. Tacho retractor was inserted. The lower uterine segment was incised in a transverse fashion. Clear amniotic fluid was noted. Head was delivered without difficulty. Remainder of body was delivered without difficulty. Mouth and nares were bulb suctioned. Spontaneous cry was noted. Delayed cord clamping was performed for 30 seconds. The umbilical cord was clamped and cut. The was handed to awaiting pediatric staff in stable condition. Dr. Medrano was present. Apgars were 8(1 min), 9(5 min). Cord blood was obtained. Gentle traction on the umbilical cord and uterine fundal massage delivered the placenta. Placenta was intact. Placenta will be sent to pathology for review. Uterus was cleared of all clots and debris with a moist laparotomy sponge. Corners of the uterine incision were grasped with Allis clamps. The uterine incision was reapproximated with # 1 Vicryl suture in a running, locked stitch. Second layer of the same stitch was used to imbricate the incision. Hemostasis was noted. Posterior cul-de-sac was cleaned with moist laparotomy sponge. Gutters cleared of all clots and debris with a moist laparotomy sponge. Attention was then turned to the left fallopian tube, which was grasped with a Tati clamp. Enseal device was used to clamp, ligate and transect the right mesosalpinx and fallopian tube at uterine cornua, Same procedure was carried out on the contralateral side Reinspection of the lower uterine segment demonstrated small amount of oozing. Surgicel powder was applied over uterine incision. Hemostasis was noted. At this point all instruments and sponges were removed from the pelvis.? The peritoneum was grasped with Nessa clamps x 3. The peritoneum was reapproximated with 0 Vicryl suture in a running stitch. The corners of the fascia were grasped with Franchesca clamps, and the fascia was reapproximated with two # 1 Vicryl suture overlapped to the right of midline. Subcutaneous tissue was irrigated with clear return of fluids. The subcutaneous tissue was reapproximated with 3-0 Vicryl. The skin was reapproximated with metal abiola. Telfa was placed over closed Pfannenstiel skin incision. At the end of the procedure, the uterus was firm with minimal vaginal bleeding. Patient tolerated the procedure well. Instrument, sponges and needle counts were correct x 2. Mom and baby were transported to recovery room in stable condition. Condition: stable Disposition: floor Specimens:: 1. Placenta and umbilical cord 2. Cord blood Complications:: None
[2024-06-03 18:15] VITALS: BP 120/62; PULSE 64; RESP 18; TEMP 36.5; O2SAT 98
[2024-06-03 18:23] VITALS: BP 120/62; PULSE 64; RESP 16; TEMP 36.5; O2SAT 97
--- NOTE | 2024-06-03 18:23 | P.PNANES_ITS ---
[facility] Anesthesia Record Part I Anesthesia Record I Intake, IV Amount: 2,000 Hydration: Adequate Estimated blood loss (mL): 350 Urine output (mL): 200 Blood Products used (#): none Blood Pressure: 120/62 SaO2: 97 Pulse Rate: 64 Airway Patency: Patent Respiratory Rate: 16 Temperature: 97.7 F Patient is:: Awake and Stable Stable to PACU at:: 18:15
[2024-06-03 18:25] VITALS: BP 126/67; PULSE 64; RESP 18; O2SAT 100
[2024-06-03 18:35] VITALS: BP 119/84; PULSE 72; RESP 18; O2SAT 100
[2024-06-03 18:45] VITALS: BP 120/72; PULSE 62; RESP 18; O2SAT 99
[2024-06-03] MEDS: OXYTOCIN/RINGERS LACTATE 30 UNITS/500 ML BAG 40 UNITS IV (18:45)
[2024-06-03 19:26] LABS: Microscopic, Urine URINE MICROSCOPIC (MICROSCOPIC)
[2024-06-03 19:29] LABS: Appearance,Urine CLEAR (Clear); Bilirubin,Urine Negative (Negative); Blood, Urine TRACE-L (Negative); Color,Urine YELLOW (Yellow); Glucose,Urine (UA) Negative (Negative); Ketones,Urine Negative (Negative); Leukocyte Esterase,Urine Negative (Negative); Nitrate,Urine Negative (Negative); Protein,Urine 1+ (Negative); Specific Gravity, Urine >= 1.030 (1.005-1.030)
[2024-06-03 19:40] LABS: Amphetamine/Metha Screen,Urine Negative ng/ml (<1000)
[2024-06-03 19:41] LABS: Amorphous Sediment,Urine 1+ /lpf; Barbiturates Screen,Urine Negative ng/ml (<200); Benzodiazepines Screen,Urine Negative ng/ml (<200); Squamous Epithelial Cell,Urine Occasional #/hpf (0-5)
[2024-06-03 19:42] LABS: Cannabinoid Screen,Urine Negative ng/ml (<50); Cocaine Screen,Urine Negative ng/ml (<300)
[2024-06-03 19:43] LABS: Methadone Screen,Urine Negative ng/ml (<300)
[2024-06-03 19:44] LABS: Opiate Screen,Urine Negative ng/ml (<300); Phencyclidine Screen,Urine Negative ng/ml (<25)
[2024-06-03 21:17] LABS: Microscopic,Cath URINE MICROSCOPIC (MICROSCOPIC)
[2024-06-03 21:18] LABS: Appearance,Urine/Cath CLEAR (Clear); Bilirubin,Cath Negative (Negative); Blood, Urine/Cath 1+ (Negative); Color,Urine/Cath YELLOW (Yellow); Glucose,Urine/Cath (UA) Negative (Negative); Ketones,Urine/Cath Negative (Negative); Leukocyte Esterase,Cath Negative (Negative); Nitrate,Cath Negative (Negative); PH,Urine/Cath 6.5 (5.0-8.5); Protein,Urine/Cath Negative (Negative); Specific Gravity, Urine/Cath 1.015 (1.005-1.030); Urobilinogen,Cath 0.2 EU/dl (0.2)
[2024-06-03 21:31] LABS: Bacteria,Urine/Cath TRACE /lpf
[2024-06-03] MEDS: HYDROMORPHONE 2MG/ML SYRINGE 2 MG IV (22:34)
[2024-06-04] VITALS: BP 119/67; PULSE 78; RESP 18; TEMP 36.6; O2SAT 98
[2024-06-04] MEDS: ACETAMINOPHEN 500MG TAB 1000 MG PO ×4 (00:55→17:53)
[2024-06-04] MEDS: KETOROLAC 30MG/ML VIAL 30 MG IV ×3 (00:56→13:30)
[2024-06-04] MEDS: OXYCODONE 5MG IMMEDIATE RELEASE TABLET 5 MG PO ×2 (03:40→12:43)
[2024-06-04 04:00] VITALS: BP 106/69; PULSE 82; RESP 18; TEMP 36.6; O2SAT 97
[2024-06-04] MEDS: CLINDAMYCIN PHOSPHATE/D5W 900 MG/50 ML PIGGYBACK 100 MG IV ×2 (04:04→12:43)
[2024-06-04] MEDS: ENOXAPARIN 40MG/0.4ML SYRINGE 40 MG SQ (07:50)
[2024-06-04 08:00] VITALS: BP 122/79; PULSE 73; RESP 18; TEMP 36.9; O2SAT 100
[2024-06-04 08:06] LABS: Basophils % 0.2 % (0.1-2.0); Eosinophils # 0.3 K/mm3 (0.0-0.4); Eosinophils % 2.3 % (0.1-12.0); Hemoglobin 11.2 g/dL (12.2-16.2); Lymphocytes # 2.9 K/mm3 (0.7-4.5); Lymphocytes % 24.8 % (10-50); Mean Corpuscular Hemoglobin 30.6 pg (27.0-31.2); Mean Corpuscular Volume 92.7 fl (81-99); Monocytes # 0.5 K/mm3 (0.1-1.0); Monocytes % 4.3 % (1.7-9.3); Neutrophils % 68.4 % (37.0-80.0); Platelet Count 196 K/mm3 (142-424); Red Blood Count 3.67 M/mm3 (4.20-5.40); Red Cell Distribution Width 13.6 % (11.5-17.5); White Blood Count 11.7 K/mm3 (4.8-10.8)
--- NOTE | 2024-06-04 11:07 | EXP.ACUTE.PN ---
Subjective *Date: 06/04/24 *Time: 11:07 Interval history: POD # 1 s/p RLTCS and BS Feeling well. Pain controlled. Formula feeding. Lochia is appropriate. Voiding without difficulty and passing flatus. Tolerating regular diet. Denies fever/chills, chest pain and shortness of breath. No headaches, vision changes, lightheadedness/dizziness. No lower extremity swelling. Ambulating well ad vu. Medical Exam Vital signs and Labs for Last 24 Hours: Vital Signs Temp Pulse Pulse Pulse Resp BP BP 06/04/24 04:00 97.8 F 82 18 106/69 L 06/04/24 00:00 97.9 F 78 18 119/67 06/03/24 18:45 62 18 06/03/24 18:35 72 18 06/03/24 18:25 64 18 06/03/24 18:23 97.7 F 64 16 120/62 06/03/24 18:15 97.7 F 64 18 06/03/24 15:30 98.5 F 85 18 139/76 BP Pulse Ox O2 Del Method 06/04/24 04:00 97 Room Air 06/04/24 00:00 98 Room Air 06/03/24 18:45 120/72 99 Room Air 06/03/24 18:35 119/84 100 Room Air 06/03/24 18:25 126/67 100 Room Air 06/03/24 18:23 06/03/24 18:15 120/62 98 Room Air 06/03/24 15:30 95 Room Air Intake and Output 06/03/24 06/04/24 06/04/24 23:59 07:59 15:59 Intake Total 1999 Output Total 700 / 700 Balance 1999 -700 / -700 Intake: Intake, Total IV Amount 1999 Output: Output, Urine Amount 700 / 700 Other: Number of Unmeasured Voids 1 Laboratory Results - last 24 hr 06/03/24 15:25: Membrane Rupture Positive A 06/03/24 15:50: WBC 13.8 H, RBC 3.94 L, Hgb 12.1 L, Hct 36.6 L, MCV 92.7, MCH 30.7, MCHC 33.1, RDW 13.7, Plt Count 219, MPV 9.8, Neut % (Auto) 74.5, Lymph % (Auto) 19.2, [place] % (Auto) 4.0, Eos % (Auto) 2.0, Baso % (Auto) 0.3, Neut # (Auto) 10.3 H, Lymph # (Auto) 2.6, [place] # (Auto) 0.6, Eos # (Auto) 0.3, Baso # (Auto) 0.1, Sodium 135 L, Potassium 4.0, Chloride 109 H, Carbon Dioxide 20 L, Anion Gap 10.0, BUN 6 L, Creatinine 0.40 L, Estimated Creat Clear 393 H, Estimated GFR 194, Est GFR ( Amer) 235, Glucose 86, Calcium 8.9, Total Bilirubin 0.5, AST 29, ALT 25, Alkaline Phosphatase 197 H, Total Protein 6.5, Albumin 3.4 L, Globulin 3.1, Albumin/Globulin Ratio 1.1, Blood Type A Positive, Antibody Screen Negative 06/03/24 19:15: Urine Color Yellow, Urine Appearance Clear, Urine pH 7.0, Ur Specific [place] >= 1.030, Urine Protein 1+, Urine Glucose (UA) Negative, Urine Ketones Negative, Urine Blood Trace-l, Urine Nitrate Negative, Urine Bilirubin Negative, Urine Urobilinogen 2.0, Ur Leukocyte Esterase Negative, Urine RBC 3-5, Urine WBC None, Ur Squamous Epith Cells Occasional, Amorphous Sediment 1+, Urine Opiates Screen Negative, Urine Methadone Screen Negative, Ur Barbituates Screen Negative, Ur Phencyclidine Scrn Negative, Ur Amphetamines Screen Negative, U Benzodiazepines Scrn Negative, Urine Cocaine Screen Negative, U Marijuana (THC) Screen Negative 06/03/24 : Urine Color Yellow, Urine Appearance Clear, Urine pH 6.5, Ur Specific [place] 1.015, Urine Protein Negative, Urine Glucose (UA) Negative, Urine Ketones Negative, Urine Blood 1+, Urine Nitrate Negative, Urine Bilirubin Negative, Urine Urobilinogen 0.2, Ur Leukocyte Esterase Negative, Urine RBC 5-10, Urine WBC None, Ur Squamous Epith Cells 3-5, Urine Bacteria Trace 06/04/24 07:24: WBC 11.7 H, RBC 3.67 L, Hgb 11.2 L, Hct 34.0 L, MCV 92.7, MCH 30.6, MCHC 33.0, RDW 13.6, Plt Count 196, MPV 10.0, Neut % (Auto) 68.4, Lymph % (Auto) 24.8, [place] % (Auto) 4.3, Eos % (Auto) 2.3, Baso % (Auto) 0.2, Neut # (Auto) 8.0 H, Lymph # (Auto) 2.9, [place] # (Auto) 0.5, Eos # (Auto) 0.3, Baso # (Auto) 0.0 I & O for Labs for Last 24 Hours: Intake & Output 06/01/24 06/02/24 06/03/24 06/04/24 23:59 23:59 23:59 23:59 Intake Total 1999 Output Total 700 / 700 Balance 1999 -700 / -700 Weight 255 lb Head: Present atraumatic and normocephalic ENT: Present mucous membranes moist Neck: Present normal inspection and full ROM Respiratory: Present CTA bilaterally and normal respiratory effort Cardiac: Present Reg Rate and Rhythm GI: Present soft and normal bowel sounds; Absent distention or tenderness Comments:: Uterine fundus firm and below umbilicus, pfannenstiel incison clean/dry/intact with metal abiola in place Rectal (female): Present deferred (female): Present deferred Extremities: Present full ROM; Absent edema or calf tenderness Neuro: Present alert, awake and moves all extremities Assessment and Plan *Assessment and plan (1) S/P repeat low transverse : Problem Comment: with bilateral salpingectomy Status: Acute Category: Surgical Code(s): Z98.891 - History of uterine scar from previous surgery (2) Spontaneous rupture of amniotic membranes: Status: Acute Category: Medical (3) Previous delivery affecting : Problem Comment: hx of x 2 Status: Acute Category: Surgical Code(s): O34.219 - Maternal care for unspecified type scar from previous delivery (4) Maternal obesity affecting , antepartum: Status: Acute Category: Medical Code(s): O99.210 - Obesity complicating , unspecified trimester (5) Limited care, antepartum: Status: Acute Category: Medical Code(s): O09.30 - Supervision of with insufficient care, unspecified trimester (6) Request for sterilization: Status: Acute Category: Medical Code(s): Z30.2 - Encounter for sterilization Plan Continue routine care Encouraged increased ambulation Plan d/c home tomorrow, POD # 2
[2024-06-04 11:27] VITALS: BMI 40.6
[2024-06-04] MEDS: SENNA 8.6MG TABLET 8.6 MG PO (12:43)
[2024-06-04 16:30] VITALS: BP 108/57; PULSE 61; RESP 18; TEMP 36.9; O2SAT 97
[2024-06-04] MEDS: PRENATAL MULTIVITAMIN W/IRON 1 EACH PO (17:53)
[2024-06-04] MEDS: IBUPROFEN 400 MG TABLET 800 MG PO (17:53)
[2024-06-04 22:47] VITALS: BP 113/63; PULSE 68; RESP 16; TEMP 36.9; O2SAT 97
[2024-06-04] MEDS: SIMETHICONE 80MG CHEWABLE TABLET 160 MG PO (22:55)
[2024-06-05] MEDS: ACETAMINOPHEN 500MG TAB 1000 MG PO ×3 (00:50→12:11)
[2024-06-05] MEDS: IBUPROFEN 400 MG TABLET 800 MG PO ×2 (02:54→09:48)
[2024-06-05 04:07] VITALS: BP 119/68; PULSE 74; RESP 15; TEMP 37; O2SAT 97
--- NOTE | 2024-06-05 07:04 | P.PNANES_ITS ---
[facility] Anesthesia Record Part II Anesthesia Record Part II Discharge Time: 18:45 Destination: Obstetric PACU nurse assessment reviewed?: Yes Patient Condition:: Good Anesthesia Complications:: None Swallowing reflex intact?: Yes Airway Patency: Patent Cyanosis?: No Blood Pressure: 120/75 SaO2: 99 Respiratory Rate: 18 Pulse Rate: 62 Temperature: 97.7 F Mental Status: Alert & Oriented Pain level:: 0 Nausea and/or vomitting:: None Intake, IV Amount: 0 Hydration: Adequate
[2024-06-05 07:05] VITALS: BP 120/75; PULSE 62; RESP 18; TEMP 36.5; O2SAT 99
[2024-06-05 07:20] VITALS: BP 115/68; PULSE 70; RESP 18; TEMP 36.9; O2SAT 100
--- NOTE | 2024-06-05 08:10 | P.DS_ITS ---
General Admission date:: 06/03/24 Discharge date: 06/05/24 HPI HPI HPI: POD # 2 s/p RLTCS with BS Feeling well. Pain controlled. Formula feeding. Lochia is appropriate. Voiding without difficulty and passing flatus. Tolerating regular diet. Denies fever/chills, chest pain and shortness of breath. No headaches, vision changes, lightheadedness/dizziness. No lower extremity swelling. Ambulating well ad vu. Hospital Course Hospital Course Hospital Course: Mrs Magali Diehl is a 23 yo at 37w5d who presents to [facility] L&D for leakage of fluid that at 1430 on 06/03/24. She admits after leakage she started having back pain. Denies contractions. Baby is active. Upon arrival to L&D Magali was grossly ruptured. Amnisure was positive. complicated by anxiety. She stopped Lexapro when she found out she was . She has had limited care with a total of 4 visits. History of x 2. She is complete with childbearing and desires permanent sterilization. She underwent repeat with bilateral salpingectomy on 06/03/24. She delivered a live female baby, Carmelal, weighing 8 lb 1 oz. Apgars 8 (1 min), 9 (5 min). EBL 350 mL. She did well /postoperatively. Pain controlled. Formula feeding. Light lochia. Voiding without difficulty and passing flatus. Tolerating regular diet. Denies fever/chills, chest pain and shortness of breath. No headaches, dizziness/lightheadedness or vision changes. Vital signs stable, afebrile. Heart regular rate and rhythm. Lungs clear to auscultation. Abdomen soft, nontender. No lower extremity swelling. Ambulating well ad vu. Normal hospital course. She was discharged to home on POD # 2 with instructions to follow-up in the office in 1 week for staple removal. Exam Data for Last 24 hours Vital signs and Labs for Last 24 Hours: Temp Pulse Resp BP Pulse Ox O2 Del Method 98.6 F 74 18 119/68 97 Room Air 06/05/24 04:07 06/05/24 04:07 06/05/24 07:05 06/05/24 04:07 06/05/24 04:07 06/05/24 04:07 Laboratory Results - last 24 hr 06/04/24 07:24: WBC 11.7 H, RBC 3.67 L, Hgb 11.2 L, Hct 34.0 L, MCV 92.7, MCH 30.6, MCHC 33.0, RDW 13.6, Plt Count 196, MPV 10.0, Neut % (Auto) 68.4, Lymph % (Auto) 24.8, [place] % (Auto) 4.3, Eos % (Auto) 2.3, Baso % (Auto) 0.2, Neut # (Auto) 8.0 H, Lymph # (Auto) 2.9, [place] # (Auto) 0.5, Eos # (Auto) 0.3, Baso # (Auto) 0.0 I & O for Last 24 hours: Intake & Output 06/02/24 06/03/24 06/04/24 06/05/24 23:59 23:59 23:59 23:59 Intake Total 1999 0 / 0 Output Total 700 / 700 Balance 1999 -700 / -700 0 / 0 Weight 255 lb 253 lb 3.2 oz Constitutional Constitutional: no acute distress and cooperative *Routine HEENT Exam Head: Present normocephalic and atraumatic Eye: Absent conjunctivae pink ENT: Present mucous membranes moist *Routine Neck Exam Neck: Present full ROM *Routine Respiratory Exam Respiratory: Present CTA bilaterally and normal respiratory effort *Routine Cardiovascular Exam Cardiovascular: Present RRR *Routine Abdominal Exam Abdominal: Present soft and normoactive bowel sounds; Absent tenderness or distended Comments: Pfannenstiel incision clean/dry/intact with metal abiola in place *Routine Rectal Exam Patient deferred: visual exam *Routine Exam Patient deferred: external exam *Routine Extremities Exam Extremities: Present full ROM; Absent edema or calf tenderness *Routine Neurological Exam Neurological: Present alert, moving all extremities and normal speech Routine Psychiatric Exam Psychiatric: Present normal affect and cooperative Results Data Completed and Pending Labs on day of discharge: Labs from last 24 hours 06/04/24 07:24 WBC 11.7 H RBC 3.67 L Hgb 11.2 L Hct 34.0 L MCV 92.7 MCH 30.6 MCHC 33.0 RDW 13.6 Plt Count 196 MPV 10.0 Neut % (Auto) 68.4 Lymph % (Auto) 24.8 [place] % (Auto) 4.3 Eos % (Auto) 2.3 Baso % (Auto) 0.2 Neut # (Auto) 8.0 H Lymph # (Auto) 2.9 [place] # (Auto) 0.5 Eos # (Auto) 0.3 Baso # (Auto) 0.0 DS: Diagnosis Discharge Diagnosis (1) S/P repeat low transverse : Status: Acute Code(s): Z98.891 - History of uterine scar from previous surgery Problem details: with bilateral salpingectomy (2) Spontaneous rupture of amniotic membranes: Status: Acute (3) Previous delivery affecting : Status: Acute Code(s): O34.219 - Maternal care for unspecified type scar from previous delivery Problem details: hx of x 2 (4) Maternal obesity affecting , antepartum: Status: Acute Code(s): O99.210 - Obesity complicating , unspecified trimester (5) Limited care, antepartum: Status: Acute Code(s): O09.30 - Supervision of with insufficient care, unspecified trimester (6) Request for sterilization: Status: Acute Code(s): Z30.2 - Encounter for sterilization Meds Home Medications and Allergies Home Medications ?Medication ?Instructions ?Recorded ?Confirmed ?Type ibuprofen 800 mg tablet 800 mg PO Q8H PRN pain #20 tabs 06/05/24 Rx oxycodone 5 mg tablet 5 mg PO Q4HP PRN Moderate Pain 06/05/24 Rx (4-6) #20 tabs New Prescriptions to Start Prescriptions: Emi Swift oxycodone Emi Euceda Allergies Allergy/AdvReac Type Severity Reaction Status Date / Time amoxicillin Allergy Hives Verified 04/12/24 09:56 Discharge Plan Disposition Patient Disposition: Home, Self-Care Condition: Good Discharge Order Discharge Orders: Discharge Order (Routine); Ordered 06/05/24 Ordered By: Emi Euceda Follow up Plan Follow up with: Emi Euceda DO [Staff Physician] - 1 week (staple removal) Prescriptions/Medication Reconciliation: New oxycodone 5 mg Tablet 5 mg PO Q4HP PRN (Reason: Moderate Pain (4-6)) Qty: 20 0RF ibuprofen 800 mg tablet 800 mg PO Q8H PRN (Reason: pain) Qty: 20 0RF Discontinued Classic 28 mg iron- 800 mcg tablet 1 tab PO DAILY Problem Reconciliation Problems Reviewed?: Yes Patient Discharge Instructions ACTIVITY: Limited activity DIET: continue same diet and regular diet Additional Instructions: Congratulations! Discharge: 1. Take 800 mg Ibuprofen every 8 hours as needed for pain. You can also take 500-1000 mg of Tylenol in between doses, every 6-8 hours. If pain persists you can take Oxycodone 5 mg, 1 tablet every 4-6 hours or more as needed. 2. Nothing in the vagina for 6 weeks - no intercourse, douching or tampons. No tub baths/hot tubs or swimming pools - Drink plenty of fluids. - No strenuous activity or driving until released by your doctor. - Don't lift anything heavier than your . 3. Reasons to return to L&D or call On-Call doctor - fever (greater than 100.4) - heavy vaginal bleeding (soaking through 1 pad in less than 2 hours) - vaginal discharge (malodorous and/or purulent) - severe headaches not resolved by medication or rest and leg tenderness/edema 4. depression/blues - Normal to feel anxious/overwhelmed for first 2 weeks - Talk to your doctor if: severe anxiety, trouble bonding with baby, withdrawing from other family members, thoughts of harming yourself or others Patient Instructions: Depression, Hemorrhage, DI for , DI for Pre-eclampsia, [facility] Post Discharge Instructions Print Language: Macanese Providers Primary Care Provider: Padmini Brasher Admit Provider: Emi Euceda Attending Provider: Emi Euceda
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
[2024-06-06 10:10] LABS: Rapid Plasma Reagin Ab Titer Non Reactive titer (NonRea<1:1)
== END 2024-06-05 15:00 | disposition home or self-care (01) | DRG 785 ==
LOC: OBOUT 15:55 → OB 15:55
PROVIDERS: Admitting Provider Obstetrics & Gynecology; PCP Nurse Practitioner Family; Visit Provider Obstetrics & Gynecology
PROC: 0UT70ZZ Resection of Bilateral Fallopian Tubes, Open Approach (ICD-10-PCS; CPT 59514; principal; 2024-06-03 17:00)
DX: O34.218 Maternal care for other type scar from previous cesarean delivery (principal); O75.82 Onset (spontaneous) of labor after 37 completed weeks of gestation but before 39 completed weeks gestation, with delivery by (planned) cesarean section; N85.8 Other specified noninflammatory disorders of uterus; Z3A.37 37 weeks gestation of pregnancy; Z37.0 Single live birth; Z30.2 Encounter for sterilization; O43.893 Other placental disorders, third trimester; O42.92 Full-term premature rupture of membranes, unspecified as to length of time between rupture and onset of labor
CPT/HCPCS: 59514; 58700; 36415; 59025; 80053; 80307; 81001; 84112; 85025; 86593; 86850; C9290; J0456; J1170; J1580; J1650; J1885; J2405; J3010; J7030; J7120

== ENCOUNTER 2024-08-30 13:26 | Emergency (ER) | payer BC, SELFPAY ==
[2024-08-30 14:03] VITALS: BP 136/84; PULSE 81; RESP 17; TEMP 36.9; O2SAT 98; BMI 45.3
[2024-08-30 14:12] LABS: UTC Strep Screen (Rapid) Negative (Negative)
--- NOTE | 2024-08-30 14:26 | EXP.UTC ---
Discharge Plan Disposition Patient Disposition: Home, Self-Care Condition: Good Prescriptions Prescriptions: New rzffsmgrzjcqsfb-ewxvaysyt-ZM [Bromfed DM] 2-30-10 mg/5 mL syrup 10 ml PO Q6H PRN (Reason: cold symptoms) Qty: 200 0RF Referrals Follow up/Referrals: Provider,Referral, [Primary Care Provider] - See instructions Activity Restrictions/Add. Instructions Additional Instructions/Restrictions: *Monitor Temp, Over the counter Motrin or Tylenol as directed/as needed Tylenol every 4 hours and Motrin every 6 hours (as long as your family doctor has told you that you can take it) for fever or pain. and straight to ER if unable to lower temp less than 101.0 after medication given *Warm salt water gargles may help to soothe the throat *Throat Lozenges? *Warm fluids like tea with honey may help to soothe the throat? *Sleep elevated *Humidifier/Vaporizer *Bromfed may cause drowsiness. Know how it effects you (your child) before driving, caring for small child, or sending your child to school. Not other antihistamines/allergy medications while taking bromfed Your throat swab was sent for culture. Those results are typically sent to your primary care. Be sure to follow up in 2-3 days with your family doctor/primary care physician if no improvement so they can review those result and treat if necessary. If you don?t have a primary care doctor, I recommend you get one but in the mean time, you will have to return to a walk in clinic Follow up IMMEDIATELY for new or worsening symptoms or no Noticeable improvement over the next 48-72 hours. 911 for difficulty breathing or swallowing Clinical Impressions Clinical Impression: Viral upper respiratory tract infection with cough Instructions Patient Instructions: Cough, Sore Throat Print Language Print Language: Kuwaiti Discharge ED Provider: Vivien Dodd [facility] HPI General Stated complaint: sore throat cough Mode of Arrival: Ambulatory Source of Information: Patient Time Seen by Provider: 08/30/24 14:26 Description of Symptoms (Recalled from Triage Doc. by RN): SORE THROAT, COUGH HEENT Symptoms (Recalled from RN notes): Yes Resp Symptoms (Recalled from RN notes): Yes Skin Symptoms (Recalled from RN notes): No MS Symptoms (Recalled from RN notes): No Functional Status (Recalled from RN notes): WNL History of Present Illness Provider Complaint: Patient states that for the last couple of days she has been having sore throat, cough and not feeling well states her children has been having similar symptoms Related Data Previous Rx's ?Medication ?Instructions ?Recorded kiyemdctfaqtlwx-gddnbgudlldwjep-PE 10 ml PO Q6H PRN cold symptoms 08/30/24 2 mg-30 mg-10 mg/5 mL oral syrup #200 mL (Bromfed DM) Allergies Allergy/AdvReac Type Severity Reaction Status Date / Time amoxicillin Allergy Hives Verified 07/11/24 10:45 Worker's Comp Is this a Worker's Comp case?: No [facility] Disclaimer: The information contained in this section may have been updated after the patient was seen, as this information can be updated by other users. Medical History Fracture of toe Request for sterilization Limited care, antepartum Maternal obesity affecting , antepartum Spontaneous rupture of amniotic membranes PTSD (post-traumatic stress disorder) Surgical History S/P repeat low transverse with bilateral salpingectomy Hx of cholecystectomy Previous section History of tonsillectomy Family History Other Anemia Asthma Cancer Coronary artery disease Heart attack Hyperlipidemia Hypertension Social History Smoking Status: Never smoker alcohol intake: never substance use type: denies use current occupational status: employed Travel in the last 8 weeks: None household members: family ROS Obtained: Yes All systems reviewed & no additional complaints except as documented and Yes Systems reviewed as appropriate & no additional complaints except as documented Constitutional Constitutional: Reports system reviewed and no additional complaints, except as documented and Reports as per HPI ENT Ears, Nose, Mouth, and Throat: Reports system reviewed and no additional complaints, except as documented, Reports as per HPI and Reports sore throat Cardiovascular Cardiovascular: Reports system reviewed and no additional complaints, except as documented and Reports as per HPI Respiratory Respiratory: Reports system reviewed and no additional complaints, except as documented, Reports as per HPI and Reports cough Gastrointestinal Gastrointestingal: Reports system reviewed and no additional complaints, except as documented and as per HPI Physical Exam General General appearance: alert and in no apparent distress ENT ENT exam: Present mucous membranes moist Expanded ENT Exam Nose exam: Absent sinus tenderness Throat exam: Present other (mild pharyngeal erythema noted) Respiratory Respiratory exam: Present normal lung sounds bilaterally; Absent respiratory distress or wheezes Cardiovascular Cardiovascular exam: Present regular rate, normal rhythm and normal heart sounds Abdominal Exam Abdominal exam: Present soft and normal bowel sounds; Absent distention or tenderness Neurological Exam Neurological exam: Present alert, oriented X3 and normal gait Medical Decision Making Medical Records Screening: Per USPSTF and CDC recommendations, given the prevalence of disease in our region, it is our hospital?s policy to screen for HIV and viral Hepatitis for all patients aged 18 and over and those with ongoing risk factors. Bc Inquiry Pt receiving controlled substance: No Bc was queried for this patient: No Vital Signs: 08/30/24 14:03 Temperature 98.4 F Temperature Source Oral Pulse Rate [Left Radial] 81 Respiratory Rate 17 Blood Pressure [Left Arm] 136/84 Blood Pressure Mean [Left Arm] 101 02 Sat by Pulse Oximetry 98 Lab Data Lab results reviewed: Yes I reviewed the patient's lab results. Lab Results 08/30/24 13:59: Strep Scn Rapid Clinic Negative Orders (Tests/Meds): ORDERS Category Date Time Status Strep Screen Confirmation Stat Micro 08/30/24 13:59 Received
[2024-08-30 14:32] VITALS: BP 136/84; PULSE 81; RESP 17; TEMP 36.9
== END 2024-08-30 14:37 | disposition home or self-care (01) ==
PROVIDERS: Emergency Provider Nurse Practitioner
DX: J06.9 Acute upper respiratory infection, unspecified (principal)
CPT/HCPCS: 87880; 99213; G0381

== ENCOUNTER 2025-08-24 13:49 | Emergency (ER) | payer BC, SELFPAY ==
[2025-08-24 14:06] VITALS: BP 129/52; PULSE 78; RESP 18; TEMP 36.9; O2SAT 98; BMI 40.7
--- OUTSIDE RECORDS SUMMARY | 2025-08-24 14:14 | XMS_ITS | Clinical Summary ---
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 Name Role Phone Unavailable Primary Care Provider Unavailabl e Allergies No known active allergies Medications escitalopram (LEXAPRO) 10 MG tablet 08/06/2021 Active Active Problems No known active problems Social History Tobacco Use Types Packs/Day Years Used Date Smoking Tobacco: Never Smokeless Tobacco: Never Intimate Partner Violence Answer Date R ecorded Insults You Not on file 08/16/2021 Threatens You Not on file 08/16/2021 Screams at You Not on file 08/16/2021 Physically Hurt Not on file 08/16/2021 Intimate Partner Violence Score Not on file 08/16/2021 Stress Answer Date Recorded Stress in your Life Not on file 09/06/2024 Dealing with Stress 3 09/06/2024 Comments Unknown Sex and Gender Information Value Date Recorded Sex Assigned at Not on file Legal Sex Female 7:23 AM CDT Gender Identity Not on file Sexual Orientation Not on file Last Filed Vital Signs Vital Sign Reading Time Taken Comments Blood Pressure 126/74 12/09/2021 10:22 AM EST Pulse 110 12/09/2021 10:22 AM EST Temperature 36.3 C (97.4 F) 05/29/2022 6:21 AM EDT Respiratory Rate - - Oxygen Saturation 100% 01/19/2022 11:40 PM EDT Inhaled Oxygen Concentration - - Weight 137 kg (302 lb 4.8 oz) 12/09/2021 10:22 A M EST Height 170.2 cm (5' 7 ) 12/09/2021 10:22 AM EST Body Mass Index 47.35 12/09/2021 10:22 AM EST Plan of Treatment Health Maintenance Due Date Last Done Comments Cervical Cancer Screening Combo 1998 Dental Cleaning/Exam 1998 HIV Screening 1998 HPV only / HPV + Pap 1998 Hepatitis C Screening 1998 Pap only testing 1998 HPV Immunization (1 - 3-dose series) 2013 Hep B Infection Screening - Triple Screen 2016 Hepatitis B Immunization (1 of 3 - 19+ 3-dose series) 2017 Tetanus Diphtheria and Pertu ssis Immunization (1 - Tdap) 2017 Annual Preventive Exam 12/09/2022 12/09/2021 Covid-19 Immunization (1 - 2 024-25 season) 2025 Influenza Immunization (#1) 2025 HIB Immunization Aged Out No longer e ligible based on patient's age to complete this topic Hepatitis A Immunization Aged Out No longer eligible based on patient's age to complete this topic Pneumococcal Immunization Aged Out No longer eligible based on patient's age to complete this topic Polio Immunization Aged Out No longer eligible based on patient's age to complete this topic Varicella Immunization Aged Out No lo nger eligible based on patient's age to complete this topic Insurance OPT OUT NO COPAY NB OPT OUT NO COPAY NB OPT OUT NO COPAY NB
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
[2025-08-24 15:20] LABS: Urine Pregnancy, HCG Qual. Negative (Negative)
[2025-08-24 16:25] VITALS: BP 135/67; PULSE 76; RESP 18; TEMP 36.8; O2SAT 98
== END 2025-08-24 16:30 | disposition home or self-care (01) ==
PROVIDERS: Nurse Practitioner; Emergency Provider Student in an Organized Health Care Education/Training Program
DX: S13.4XXA Sprain of ligaments of cervical spine, initial encounter (principal); S29.012A Strain of muscle and tendon of back wall of thorax, initial encounter; S39.012A Strain of muscle, fascia and tendon of lower back, initial encounter; M79.642 Pain in left hand; V47.5XXA Car driver injured in collision with fixed or stationary object in traffic accident, initial encounter
CPT/HCPCS: 70450; 72125; 72128; 72131; 81025; 99283; 99285